=== PATIENT | female | born 1995 | race Caucasian/White ===

== ENCOUNTER 2017-07-08 18:14 | Emergency (ER) | payer OTHER ==
[~2017-07-08] VITALS: Ht 165.1 cm; Wt 100.7 kg
[2017-07-08 18:19] VITALS: Ht 165.1 cm; Wt 100.7 kg
[2017-07-08 20:43] VITALS: BP 143/90
== END 2017-07-08 20:44 | disposition home or self-care (01) ==
LOC: ED 18:14
DX: R10.2 Pelvic and perineal pain (principal); K62.89 Other specified diseases of anus and rectum

== ENCOUNTER 2017-07-09 17:32 | Emergency (ER) | payer SELFPAY | END 2017-07-09 18:02 | disposition left against medical advice (07) | LOC: ED 17:32 | DX: Z53.21 Procedure and treatment not carried out due to patient leaving prior to being seen by health care provider (principal) ==